=== PATIENT | male | born 1935 | race African-American/Black ===

== ENCOUNTER 2020-08-15 21:15 | Emergency (ER) | payer OTHER ==
[2020-08-15 21:43] VITALS: TEMP 97.6; BMI 27.4
[2020-08-15 22:09] LABS: BASO % 0.4 % (0-2.0); EOS % 0.2 % (0-4.5); HEMATOCRIT 35.5 % (35.4-49); HEMOGLOBIN 12.3 GM/dL (11.7-16.9); LYMPH % 11.6 % (8-40); MCH 30.7 pg (25.7-33.7); MCHC 34.7 g/dl (32.0-35.9); MEAN CELL VOLUME 88.5 fl (80-96); MEAN PLT VOLUME 8.9 fl (7.5-11.1); MONO % 4.5 % (3.8-10.2); NEUT % 83.3 % (42.8-82.8); PLATELET COUNT 157 K/MM3 (134-434); RBC 4.01 M/mm3 (4.00-5.60); RDW 16.2 % (11.9-15.9); WHITE BLOOD COUNT 7.7 K/mm3 (4.0-10.0)
[2020-08-15 22:19] LABS: CHLORIDE 102 mmol/L (98-107); SODIUM 138 mmol/L (136-145)
[2020-08-15 22:22] LABS: ALBUMIN 4.1 g/dl (3.4-5.0); ANION GAP 11 MMOL/L (8-16); CO2 26 mmol/L (21-32); GLUCOSE,RANDOM 61 mg/dL (74-106)
[2020-08-15 22:25] LABS: CREATININE 2.4 mg/dL (0.55-1.3); SGOT/AST 30 U/L (15-37); SGPT/ALT 23 U/L (13-61)
[2020-08-15 22:27] LABS: BILIRUBIN,TOTAL 0.5 mg/dL (0.2-1); TOT PROT 7.6 g/dl (6.4-8.2)
[2020-08-15 22:28] LABS: ALK PHOS 84 U/L (45-117)
[2020-08-15 22:32] LABS: BLOOD UREA NITROGEN 27.8 mg/dL (7-18)
[2020-08-15 23:56] VITALS: BP 120/63; PULSE 64
== END 2020-08-15 23:56 | disposition home or self-care (01) ==
LOC: JER 21:15
DX: E16.2 Hypoglycemia, unspecified (principal)
CPT/HCPCS: 36415; 70450-TC; 80053; 82550; 82553; 82962; 84484; 85025; 93005; 93010; 99285-25

== ENCOUNTER 2020-09-06 10:02 | Emergency (ER) | payer OTHER ==
[2020-09-06 10:12] VITALS: BP 159/95; PULSE 63; TEMP 97.8; BMI 61.4
[2020-09-06] MEDS ORDERED: LIDOCAINE 1%/EPI 1:100000 (50 ML MULTI DOSE VIAL) INF ONE (11:36)
[2020-09-06] MEDS ORDERED: LIDOCAINE 1%/EPI 1:100000 (20 ML MULTI DOSE VIAL) ONE (11:54)
== END 2020-09-06 13:00 | disposition home or self-care (01) ==
LOC: JER 10:02
PROC: 0H96XZZ Drainage of Back Skin, External Approach (ICD-10-PCS; principal; 2020-09-06)
DX: L02.212 Cutaneous abscess of back [any part, except buttock and flank] (principal)
CPT/HCPCS: 99284-25

== ENCOUNTER 2021-02-26 19:33 | Inpatient (IN) | payer OTHER ==
[2021-02-26 20:01] VITALS: BMI 25.9
[2021-02-26] MEDS ORDERED: LACTATED RINGERS SOLUTION 1000 ML INFUS.BAG IV ONE (20:28)
[2021-02-26] MEDS ORDERED: DEXTROSE 50%-WATER 25 GM/50 ML DISP.SYRIN ONE (20:34)
[2021-02-26 21:33] LABS: BASO % 0.4 % (0-2.0); EOS % 0.1 % (0-4.5); HEMATOCRIT 32.8 % (35.4-49); HEMOGLOBIN 11.2 GM/dL (11.7-16.9); LYMPH % 18.6 % (8-40); MEAN CELL VOLUME 88.1 fl (80-96); MONO % 15.1 % (3.8-10.2); NEUT % 65.8 % (42.8-82.8); PLATELET COUNT 172 10^3/uL (134-434); RBC 3.72 M/mm3 (4.00-5.60); RDW 15.4 % (11.9-15.9); WHITE BLOOD COUNT 6.4 K/mm3 (4.0-10.0)
[2021-02-26] MEDS ORDERED: CEFTRIAXONE 1 GM in DEXTROSE 5%-WATER - 100 ML IVPB ONE (21:35)
[2021-02-26] MEDS ORDERED: AZITHROMYCIN IVPB 500 MG in DEXTROSE 5%-WATER - 250 ML IVPB ONE (21:35)
[2021-02-26 21:41] LABS: EPI CELLS 2 /uL (0-25.1); HYALINE CASTS 0 /uL (0-3.1); URINE APPEARANCE CLEAR; URINE BACTERIA 2 /uL (0-1359); URINE BILIRUBIN NEGATIVE (NEGATIVE); URINE COLOR YELLOW; URINE GLUCOSE (UA) NEGATIVE (NEGATIVE); URINE KETONE NEGATIVE (NEGATIVE); URINE LEUK ESTERASE 1+ (NEGATIVE); URINE NITRITE NEGATIVE (NEGATIVE); URINE PROTEIN TRACE (NEGATIVE); URINE RBC 287 /uL (0-23.9); URINE UROBILINOGEN 0.2 mg/dL (0.2-1.0); URINE WBC 31 /uL (0-25.8)
[2021-02-26] MEDS ORDERED: CEFTRIAXONE 1 GM/50 ML BAG ONE (21:46)
[2021-02-26] MEDS ORDERED: AZITHROMYCIN IVPB 500 MG/250 ML BAG IVPB ONE (21:47)
[2021-02-26 21:54] LABS: CALCIUM 8.6 mg/dL (8.5-10.1)
[2021-02-26 21:55] LABS: ALBUMIN 3.5 g/dl (3.4-5.0); BLOOD UREA NITROGEN 29.2 mg/dL (7-18)
[2021-02-26 21:58] LABS: CREATININE 2.9 mg/dL (0.55-1.3)
[2021-02-26 21:59] LABS: TOT PROT 7.4 g/dl (6.4-8.2)
[2021-02-26 22:00] LABS: BILIRUBIN,TOTAL 0.3 mg/dL (0.2-1)
[2021-02-27] MEDS ORDERED: DEXAMETHASONE SOD PHOSPHATE 10 MG/1 ML VIAL IVPUSH ONE (02:32)
[2021-02-27] MEDS ORDERED: DEXAMETHASONE SOD PHOSPHATE 10 MG/1 ML VIAL ONE (04:24)
[2021-02-27] MEDS ORDERED: ACETAMINOPHEN 1000 MG/100 ML VIAL IVPB PRN (06:32)
[2021-02-27] MEDS ORDERED: ACETAMINOPHEN INJECTION 100 ML IVPB ONE (09:08)
[2021-02-27] MEDS ORDERED: CEFTRIAXONE 1 GM/50 ML BAG ONE (15:00)
[2021-02-27] MEDS: CEFTRIAXONE 1 GM in DEXTROSE 5%-WATER - 50 ML IVPB SCH (15:24)
[2021-02-27] MEDS ORDERED: SODIUM CHLORIDE 1,000 ML IV SCH (17:00)
[2021-02-27] MEDS ORDERED: HEPARIN NA (PORCINE) 5,000 UNITS/ML 1ML VIAL ONE (23:56)
[2021-02-28] MEDS: HEPARIN NA (PORCINE) 5,000 UNITS/ML 1ML VIAL SQ SCH ×2 (00:03→10:50)
[2021-02-28] MEDS: INSULIN SLIDING SCALE (NOVOLOG) 1 VIAL SQ SCH ×2 (02:09→07:55)
[2021-02-28 02:48] VITALS: TEMP 97.8
[2021-02-28] MEDS ORDERED: CEFTRIAXONE 1 GM/50 ML BAG ONE (10:48)
[2021-02-28] MEDS ORDERED: HEPARIN NA (PORCINE) 5,000 UNITS/ML 1ML VIAL ONE (10:48)
[2021-02-28] MEDS: CEFTRIAXONE 1 GM in DEXTROSE 5%-WATER - 50 ML IVPB SCH (10:50)
[2021-02-28 12:25] LABS: BASO % 0.4 % (0-2.0); HEMATOCRIT 31.9 % (35.4-49); HEMOGLOBIN 10.7 GM/dL (11.7-16.9); LYMPH % 14.7 % (8-40); MCH 29.6 pg (25.7-33.7); MCHC 33.6 g/dl (32.0-35.9); MEAN CELL VOLUME 88.1 fl (80-96); MEAN PLT VOLUME 8.4 fl (7.5-11.1); MONO % 8.2 % (3.8-10.2); NEUT % 76.7 % (42.8-82.8); PLATELET COUNT 178 10^3/uL (134-434); RBC 3.62 M/mm3 (4.00-5.60); RDW 15.7 % (11.9-15.9); WHITE BLOOD COUNT 6.8 K/mm3 (4.0-10.0)
[2021-02-28 13:03] LABS: BLOOD UREA NITROGEN 36.5 mg/dL (7-18); CALCIUM 8.3 mg/dL (8.5-10.1)
[2021-02-28 13:04] LABS: MAGNESIUM 2.4 mg/dL (1.8-2.4)
[2021-02-28 13:06] LABS: CREATININE 2.4 mg/dL (0.55-1.3)
[2021-02-28 13:08] LABS: BILIRUBIN,TOTAL 0.2 mg/dL (0.2-1); TOT PROT 6.3 g/dl (6.4-8.2)
[2021-02-28 13:09] LABS: ALBUMIN 2.8 g/dl (3.4-5.0)
[2021-02-28 18:20] VITALS: BP 122/69; PULSE 75
[2021-03-01] MEDS ORDERED: metoPROLOL SUCCINATE 25 MG TAB.SR.24H (FP) PO SCH (10:00)
== END 2021-02-28 18:20 | disposition home or self-care (01) | DRG 637 ==
LOC: JER 19:33 → JERBED 23:04
PROVIDERS: ADMIT Hospitalist; ATTEND Nurse Practitioner Family
DX: E11.649 Type 2 diabetes mellitus with hypoglycemia without coma (principal); J12.82 Pneumonia due to coronavirus disease 2019; U07.1 COVID-19; G93.41 Metabolic encephalopathy; N39.0 Urinary tract infection, site not specified; I13.0 Hypertensive heart and chronic kidney disease with heart failure and stage 1 through stage 4 chronic kidney disease, or unspecified chronic kidney disease; E78.5 Hyperlipidemia, unspecified; N40.0 Benign prostatic hyperplasia without lower urinary tract symptoms; M10.9 Gout, unspecified; R09.02 Hypoxemia; E86.0 Dehydration; N17.9 Acute kidney failure, unspecified; G30.9 Alzheimer's disease, unspecified; F02.80 Dementia in other diseases classified elsewhere, unspecified severity, without behavioral disturbance, psychotic disturbance, mood disturbance, and anxiety; E11.22 Type 2 diabetes mellitus with diabetic chronic kidney disease; N18.30 Chronic kidney disease, stage 3 unspecified; I50.9 Heart failure, unspecified
CPT/HCPCS: 36415; 71045-TC-FY; 74176-TC; 80053; 81003; 82550; 82553; 82962; 83735; 84484; 85025; 85379; 86140; 87040; 87086; 87804; 93005; 93010; 99285-25; C9803; J0131; J1100; J1644; U0003; U0005

== ENCOUNTER 2021-03-01 06:34 | Observation (INO) | payer OTHER ==
[2021-03-01 06:41] VITALS: BMI 26.3
[2021-03-01] MEDS ORDERED: CEFTRIAXONE 1 GM in DEXTROSE 5%-WATER - 100 ML IVPB ONE (08:05)
[2021-03-01] MEDS ORDERED: SODIUM CHLORIDE 0.9% 500 ML INFUS.BAG IV ONE (08:11)
[2021-03-01] MEDS ORDERED: CEFTRIAXONE 1 GM/50 ML BAG ONE (10:04)
[2021-03-01 10:10] LABS: BASO % 0.1 % (0-2.0); HEMATOCRIT 34.6 % (35.4-49); HEMOGLOBIN 11.5 GM/dL (11.7-16.9); LYMPH % 16.6 % (8-40); MCH 29.3 pg (25.7-33.7); MCHC 33.3 g/dl (32.0-35.9); MEAN PLT VOLUME 8.4 fl (7.5-11.1); MONO % 12.4 % (3.8-10.2); NEUT % 70.9 % (42.8-82.8); PLATELET COUNT 171 10^3/uL (134-434); RBC 3.93 M/mm3 (4.00-5.60); RDW 15.2 % (11.9-15.9); WHITE BLOOD COUNT 6.3 K/mm3 (4.0-10.0)
[2021-03-01 10:34] LABS: CALCIUM 9.2 mg/dL (8.5-10.1)
[2021-03-01 10:35] LABS: BLOOD UREA NITROGEN 39.1 mg/dL (7-18)
[2021-03-01 10:38] LABS: CREATININE 2.9 mg/dL (0.55-1.3)
[2021-03-01 10:40] LABS: BILIRUBIN,TOTAL 0.3 mg/dL (0.2-1); TOT PROT 7.1 g/dl (6.4-8.2)
[2021-03-01 11:54] LABS: EPI CELLS 3 /uL (0-25.1); HYALINE CASTS 0 /uL (0-3.1); PH,URINE 6.5 (5.0-8.0); URINE APPEARANCE CLEAR; URINE BACTERIA 0 /uL (0-1359); URINE BILIRUBIN NEGATIVE (NEGATIVE); URINE COLOR YELLOW; URINE GLUCOSE (UA) NEGATIVE (NEGATIVE); URINE KETONE NEGATIVE (NEGATIVE); URINE LEUK ESTERASE TRACE (NEGATIVE); URINE NITRITE NEGATIVE (NEGATIVE); URINE PROTEIN 2+ (NEGATIVE); URINE RBC 1209 /uL (0-23.9); URINE UROBILINOGEN 0.2 mg/dL (0.2-1.0); URINE WBC 20 /uL (0-25.8)
[2021-03-01] MEDS ORDERED: ASPIRIN 81 MG CHEWABLE TABLETS PO ONE (12:14)
[2021-03-01] MEDS ORDERED: ASPIRIN 81 MG CHEWABLE TABLETS ONE (14:25)
[2021-03-01 15:15] LABS: MAGNESIUM 2.3 mg/dL (1.8-2.4)
[2021-03-01 15:19] LABS: PHOSPHOROUS 3.5 mg/dL (2.5-4.9)
[2021-03-01] MEDS ORDERED: PNEUMOC 13-VAL CONJ-DIP CRM/PF 0.5 ML DISP.SYRIN IM ONE (17:43)
[2021-03-01] MEDS: INSULIN SLIDING SCALE (NOVOLOG) 1 VIAL SQ SCH ×2 (19:24→22:36)
[2021-03-01] MEDS ORDERED: HEPARIN NA (PORCINE) 5,000 UNITS/ML 1ML VIAL ONE (21:28)
[2021-03-01] MEDS: HEPARIN NA (PORCINE) 5,000 UNITS/ML 1ML VIAL SQ SCH (22:00)
[2021-03-02] MEDS ORDERED: ACETAMINOPHEN 1000 MG/100 ML BAG IVPB ONE (04:33)
[2021-03-02] MEDS ORDERED: HEPARIN NA (PORCINE) 5,000 UNITS/ML 1ML VIAL ONE ×3 (06:38→22:25)
[2021-03-02] MEDS: HEPARIN NA (PORCINE) 5,000 UNITS/ML 1ML VIAL SQ SCH ×3 (06:54→22:44)
[2021-03-02] MEDS: INSULIN SLIDING SCALE (NOVOLOG) 1 VIAL SQ SCH ×4 (07:22→22:44)
[2021-03-02 07:27] LABS: BLOOD UREA NITROGEN 32.2 mg/dL (7-18); CALCIUM 8.8 mg/dL (8.5-10.1)
[2021-03-02 07:31] LABS: CREATININE 2.2 mg/dL (0.55-1.3)
[2021-03-02] MEDS ORDERED: PT OWN MED DRAWER 7, Y5N ONE (09:02)
[2021-03-02 09:15] LABS: HEMATOCRIT 32.7 % (35.4-49); MCH 29.6 pg (25.7-33.7); MCHC 33.7 g/dl (32.0-35.9); MEAN CELL VOLUME 87.9 fl (80-96); PLATELET COUNT 154 10^3/uL (134-434); RBC 3.72 M/mm3 (4.00-5.60); RDW 15.3 % (11.9-15.9); WHITE BLOOD COUNT 5.2 K/mm3 (4.0-10.0)
[2021-03-02 11:21] LABS: ANISOCYTOSIS 1+; MACROCYTOSIS 0; OVALOCYTE 1+; PLATELET ESTIMATE DECREASED
[2021-03-02] MEDS: CEFUROXIME AXETIL 500 MG TABLET PO SCH ×2 (12:42→22:44)
[2021-03-02] MEDS ORDERED: metoPROLOL SUCCINATE 25 MG TAB.SR.24H (FP) ONE (16:12)
[2021-03-02] MEDS: amLODIPine BESYLATE 5 MG TABLET (FP) PO SCH (16:20)
[2021-03-02] MEDS: metoPROLOL SUCCINATE 25 MG TAB.SR.24H (FP) PO SCH (16:20)
[2021-03-02] MEDS ORDERED: ATORVASTATIN CA 10 MG TABLET (FP) ONE (23:04)
[2021-03-02] MEDS: ATORVASTATIN CA 10 MG TABLET (FP) PO SCH (23:06)
[2021-03-03] MEDS: HEPARIN NA (PORCINE) 5,000 UNITS/ML 1ML VIAL SQ SCH ×3 (05:57→22:57)
[2021-03-03] MEDS: INSULIN SLIDING SCALE (NOVOLOG) 1 VIAL SQ SCH ×4 (06:16→22:57)
[2021-03-03] MEDS: ZINC SULFATE 220 MG CAPSULE (FP) PO SCH (09:15)
[2021-03-03] MEDS: metoPROLOL SUCCINATE 25 MG TAB.SR.24H (FP) PO SCH (09:15)
[2021-03-03] MEDS: amLODIPine BESYLATE 5 MG TABLET (FP) PO SCH (09:15)
[2021-03-03] MEDS: ASCORBIC ACID 500 MG TABLET (FP) PO SCH (09:15)
[2021-03-03] MEDS: CEFUROXIME AXETIL 500 MG TABLET PO SCH ×2 (09:15→22:57)
[2021-03-03] MEDS ORDERED: ACETAMINOPHEN 325 MG TABLET (FP) PO PRN (20:40)
[2021-03-03] MEDS ORDERED: ACETAMINOPHEN 1000 MG/100 ML BAG IVPB ONE (22:00)
[2021-03-03] MEDS: ATORVASTATIN CA 10 MG TABLET (FP) PO SCH (22:57)
[2021-03-04] MEDS: HEPARIN NA (PORCINE) 5,000 UNITS/ML 1ML VIAL SQ SCH ×3 (05:50→21:27)
[2021-03-04] MEDS: INSULIN SLIDING SCALE (NOVOLOG) 1 VIAL SQ SCH ×4 (06:15→21:38)
[2021-03-04] MEDS: ZINC SULFATE 220 MG CAPSULE (FP) PO SCH (09:51)
[2021-03-04] MEDS: metoPROLOL SUCCINATE 25 MG TAB.SR.24H (FP) PO SCH (09:51)
[2021-03-04] MEDS: ASCORBIC ACID 500 MG TABLET (FP) PO SCH (09:52)
[2021-03-04] MEDS: amLODIPine BESYLATE 5 MG TABLET (FP) PO SCH (09:52)
[2021-03-04] MEDS ORDERED: PT OWN MED DRAWER 7, Y5N ONE (14:28)
[2021-03-04] MEDS: CEFUROXIME AXETIL 500 MG TABLET PO SCH ×2 (14:29→21:27)
[2021-03-04 20:18] VITALS: BP 119/71; PULSE 80; TEMP 99.6
[2021-03-04] MEDS: ATORVASTATIN CA 10 MG TABLET (FP) PO SCH (21:26)
== END 2021-03-04 22:20 ==
LOC: JER 06:34 → JERBED 09:16 → UNDOADMOB 09:16 → INTOOBSV 09:16 → JERBED 13:56 → J4W 03-03 00:24
PROVIDERS: ADMIT Internal Medicine; ATTEND Nurse Practitioner Acute Care
PROC: 3E03329 Introduction of Other Anti-infective into Peripheral Vein, Percutaneous Approach (ICD-10-PCS; principal; 2021-03-01)
PROC: 3E023GC Introduction of Other Therapeutic Substance into Muscle, Percutaneous Approach (ICD-10-PCS; 2021-03-01)
PROC: 3E013VG Introduction of Insulin into Subcutaneous Tissue, Percutaneous Approach (ICD-10-PCS; 2021-03-01)
PROC: 3E0337Z Introduction of Electrolytic and Water Balance Substance into Peripheral Vein, Percutaneous Approach (ICD-10-PCS; 2021-03-01)
DX: U07.1 COVID-19 (principal); E11.22 Type 2 diabetes mellitus with diabetic chronic kidney disease; I13.0 Hypertensive heart and chronic kidney disease with heart failure and stage 1 through stage 4 chronic kidney disease, or unspecified chronic kidney disease; N39.0 Urinary tract infection, site not specified; I24.8 Other forms of acute ischemic heart disease; E78.00 Pure hypercholesterolemia, unspecified; F03.90 Unspecified dementia, unspecified severity, without behavioral disturbance, psychotic disturbance, mood disturbance, and anxiety; Z87.440 Personal history of urinary (tract) infections; J18.9 Pneumonia, unspecified organism; E88.89 Other specified metabolic disorders; R79.89 Other specified abnormal findings of blood chemistry
CPT/HCPCS: 36415; 70450-TC; 71045-TC-FY; 72125-TC; 80048; 80053; 81003; 82962; 83735; 84100; 84484; 85025; 87086; 93005; 93010; 96365; 96372; 96375; 96376; 97116-GP; 97162-GP; 99285-25; C9803; G0378; J0131; J1644; U0003; U0005

== ENCOUNTER 2024-05-04 06:24 | Inpatient (IN) | payer OTHER ==
[2024-05-04] MEDS: SODIUM CHLORIDE 0.9% 1000 ML INFUS.BAG IV ONE (08:34)
[2024-05-04] MEDS: SODIUM CHLORIDE 0.9% 500 ML INFUS.BAG IV ONE (08:34)
[2024-05-04] MEDS ORDERED: ACETAMINOPHEN INJECTION 100 ML ONE (08:56)
[2024-05-04 08:58] LABS: BASO % 0.4 % (0-2.0); EOS % 0.4 % (0-4.5); HEMATOCRIT 40.5 % (35.4-49); HEMOGLOBIN 13.5 GM/dL (11.7-16.9); LYMPH % 13.5 % (8-40); MCH 30.5 pg (25.7-33.7); MCHC 33.4 g/dl (32.0-35.9); MEAN CELL VOLUME 91.2 fl (80-96); MEAN PLT VOLUME 7.9 fl (7.5-11.1); MONO % 16.7 % (3.8-10.2); PLATELET COUNT 133 10^3/uL (134-434); RBC 4.44 M/mm3 (4.00-5.60); RDW 15.2 % (11.9-15.9); WHITE BLOOD COUNT 5.1 K/mm3 (4.0-10.0)
[2024-05-04] MEDS: ACETAMINOPHEN 1000 MG/100 ML BAG IVPB ONE (08:59)
[2024-05-04 09:26] LABS: EPI CELLS 1 /uL (0-25.1); HYALINE CASTS 0 /uL (0-3.1); URINE APPEARANCE CLEAR; URINE BACTERIA 0 /uL (0-1359); URINE BILIRUBIN NEGATIVE (NEGATIVE); URINE COLOR YELLOW; URINE GLUCOSE (UA) 2+ (NEGATIVE); URINE KETONE NEGATIVE (NEGATIVE); URINE LEUK ESTERASE NEGATIVE (NEGATIVE); URINE NITRITE NEGATIVE (NEGATIVE); URINE PROTEIN 1+ (NEGATIVE); URINE RBC 8 /uL (0-23.9); URINE UROBILINOGEN 0.2 mg/dL (0.2-1.0); URINE WBC 1 /uL (0-25.8)
[2024-05-04 09:43] LABS: POTASSIUM 4.2 mmol/L (3.5-5.1)
[2024-05-04 09:45] LABS: CALCIUM 9.1 mg/dL (8.5-10.1)
[2024-05-04 09:46] LABS: BLOOD UREA NITROGEN 40.5 mg/dL (7-18); MAGNESIUM 2.6 mg/dL (1.8-2.4)
[2024-05-04 09:49] LABS: CREATININE 3.7 mg/dL (0.55-1.3)
[2024-05-04 09:50] LABS: BILIRUBIN,TOTAL 0.4 mg/dL (0.2-1); TOT PROT 7.7 g/dl (6.4-8.2)
[2024-05-04 13:24] LABS: HIV INTERPRETATION NEGATIVE (NEGATIVE)
[2024-05-04] MEDS: INSULIN ASPART SLIDING SCALE (NOVOLOG) 1 VIAL SQ SCH (17:21)
[2024-05-04] MEDS: ATORVASTATIN CA 10 MG TABLET (FP) PO SCH (21:58)
[2024-05-04] MEDS: PRAMIPEXOLE DIHYDROCHLORIDE 0.5 MG TABLET PO SCH (21:58)
[2024-05-04] MEDS: DONEPEZIL HCL 5 MG TABLET (FP) PO SCH (21:58)
[2024-05-04] MEDS: HEPARIN NA (PORCINE) 5,000 UNITS/ML 1ML VIAL SQ SCH (21:58)
[2024-05-05] MEDS: ACETAMINOPHEN 325 MG TABLET (FP) PO PRN (03:47)
[2024-05-05 08:09] LABS: HEMATOCRIT 37.8 % (35.4-49); MCH 30.9 pg (25.7-33.7); MCHC 34.4 g/dl (32.0-35.9); MEAN CELL VOLUME 89.8 fl (80-96); MEAN PLT VOLUME 8.1 fl (7.5-11.1); PLATELET COUNT 129 10^3/uL (134-434); RBC 4.21 M/mm3 (4.00-5.60); RDW 15.5 % (11.9-15.9); WHITE BLOOD COUNT 4.9 K/mm3 (4.0-10.0)
[2024-05-05 08:27] LABS: POTASSIUM 3.9 mmol/L (3.5-5.1)
[2024-05-05 08:31] LABS: CALCIUM 8.5 mg/dL (8.5-10.1)
[2024-05-05 08:33] LABS: ALBUMIN 3.5 g/dl (3.4-5.0); BLOOD UREA NITROGEN 39.9 mg/dL (7-18); MAGNESIUM 2.3 mg/dL (1.8-2.4)
[2024-05-05 08:36] LABS: CREATININE 3.2 mg/dL (0.55-1.3); PHOSPHOROUS 3.2 mg/dL (2.5-4.9)
[2024-05-05 08:37] LABS: BILIRUBIN,TOTAL 0.4 mg/dL (0.2-1); TOT PROT 6.9 g/dl (6.4-8.2)
[2024-05-05] MEDS: amLODIPine BESYLATE 5 MG TABLET (FP) PO SCH (11:14)
[2024-05-05] MEDS: LOSARTAN POTASSIUM 50 MG TABLET PO SCH (11:14)
[2024-05-05] MEDS: metoPROLOL SUCCINATE 25 MG TAB.SR.24H (FP) PO SCH (11:14)
[2024-05-06 07:28] LABS: HEMATOCRIT 41.7 % (35.4-49); HEMOGLOBIN 13.9 GM/dL (11.7-16.9); MCH 30.6 pg (25.7-33.7); MCHC 33.4 g/dl (32.0-35.9); MEAN CELL VOLUME 91.6 fl (80-96); MEAN PLT VOLUME 8.1 fl (7.5-11.1); PLATELET COUNT 139 10^3/uL (134-434); RBC 4.55 M/mm3 (4.00-5.60); RDW 15.4 % (11.9-15.9); WHITE BLOOD COUNT 5.1 K/mm3 (4.0-10.0)
[2024-05-06 07:49] LABS: POTASSIUM 3.9 mmol/L (3.5-5.1)
[2024-05-06 07:56] LABS: CALCIUM 9.4 mg/dL (8.5-10.1)
[2024-05-06 07:57] LABS: ALBUMIN 3.7 g/dl (3.4-5.0)
[2024-05-06 08:01] LABS: BILIRUBIN,TOTAL 0.5 mg/dL (0.2-1); CREATININE 3.2 mg/dL (0.55-1.3); TOT PROT 7.6 g/dl (6.4-8.2)
[2024-05-06 15:56] VITALS: BMI 24.1
[2024-05-07 15:08] VITALS: BP 133/81; PULSE 100; RESP 20; TEMP 98.2
== END 2024-05-07 15:03 | DRG 309 ==
LOC: JER 06:24 → JERBED 09:34 → J4W 14:33
PROVIDERS: ADMIT Family Medicine; ATTEND Family Medicine
DX: I47.10 Supraventricular tachycardia, unspecified (principal); I13.0 Hypertensive heart and chronic kidney disease with heart failure and stage 1 through stage 4 chronic kidney disease, or unspecified chronic kidney disease; I50.32 Chronic diastolic (congestive) heart failure; G20.A1 Parkinson's disease without dyskinesia, without mention of fluctuations; F03.90 Unspecified dementia, unspecified severity, without behavioral disturbance, psychotic disturbance, mood disturbance, and anxiety; I48.91 Unspecified atrial fibrillation; E78.5 Hyperlipidemia, unspecified; N40.0 Benign prostatic hyperplasia without lower urinary tract symptoms; N18.9 Chronic kidney disease, unspecified; E11.22 Type 2 diabetes mellitus with diabetic chronic kidney disease; R26.81 Unsteadiness on feet
CPT/HCPCS: 0241U-QW; 36415; 71045-TC-FY; 80053; 81003; 82962; 83735; 83880; 84100; 84484; 85025; 85027; 86803; 87040; 87086; 87389; 93005; 93010; 93306-TC; 97116-GP; 97162-GP; 99285-25; J0131; J1644

== ENCOUNTER 2024-05-07 16:42 | Observation (INO) | payer OTHER ==
[2024-05-07 18:09] LABS: POTASSIUM 4.4 mmol/L (3.5-5.1)
[2024-05-07 18:11] LABS: ALBUMIN 3.8 g/dl (3.4-5.0); CALCIUM 9.3 mg/dL (8.5-10.1)
[2024-05-07 18:12] LABS: BLOOD UREA NITROGEN 38.9 mg/dL (7-18)
[2024-05-07 18:15] LABS: BASO % 0.4 % (0-2.0); CREATININE 3.3 mg/dL (0.55-1.3); HEMATOCRIT 44.4 % (35.4-49); HEMOGLOBIN 14.8 GM/dL (11.7-16.9); LYMPH % 36.6 % (8-40); MCH 30.5 pg (25.7-33.7); MCHC 33.3 g/dl (32.0-35.9); MEAN CELL VOLUME 91.7 fl (80-96); MEAN PLT VOLUME 7.9 fl (7.5-11.1); MONO % 11.6 % (3.8-10.2); NEUT % 50.4 % (42.8-82.8); PLATELET COUNT 152 10^3/uL (134-434); RBC 4.84 M/mm3 (4.00-5.60); WHITE BLOOD COUNT 5.9 K/mm3 (4.0-10.0)
[2024-05-07 18:16] LABS: BILIRUBIN,TOTAL 0.5 mg/dL (0.2-1); TOT PROT 7.8 g/dl (6.4-8.2)
[2024-05-07 19:27] LABS: EPI CELLS 2 /uL (0-25.1); HYALINE CASTS 0 /uL (0-3.1); PH,URINE 6.5 (5.0-8.0); URINE APPEARANCE CLEAR; URINE BACTERIA 23 /uL (0-1359); URINE BILIRUBIN NEGATIVE (NEGATIVE); URINE COLOR YELLOW; URINE GLUCOSE (UA) NEGATIVE (NEGATIVE); URINE KETONE NEGATIVE (NEGATIVE); URINE LEUK ESTERASE NEGATIVE (NEGATIVE); URINE NITRITE NEGATIVE (NEGATIVE); URINE PROTEIN 2+ (NEGATIVE); URINE RBC 15 /uL (0-23.9); URINE UROBILINOGEN 0.2 mg/dL (0.2-1.0); URINE WBC 1 /uL (0-25.8)
[2024-05-07] MEDS ORDERED: ACETAMINOPHEN 325 MG TABLET (FP) PO PRN (20:44)
[2024-05-07] MEDS ORDERED: DOCUSATE SODIUM 100 MG CAPSULE (FP) PO PRN (20:44)
[2024-05-07] MEDS ORDERED: ATORVASTATIN CA 10 MG TABLET (FP) ONE (22:01)
[2024-05-07] MEDS ORDERED: HEPARIN NA (PORCINE) 5,000 UNITS/ML 1ML VIAL ONE (22:02)
[2024-05-07] MEDS: INSULIN ASPART SLIDING SCALE (NOVOLOG) 1 VIAL SQ SCH (22:07)
[2024-05-07] MEDS: ATORVASTATIN CA 10 MG TABLET (FP) PO SCH (22:07)
[2024-05-07] MEDS: HEPARIN NA (PORCINE) 5,000 UNITS/ML 1ML VIAL SQ SCH (22:07)
[2024-05-07 22:35] VITALS: BMI 23.1
[2024-05-07] MEDS: PRAMIPEXOLE DIHYDROCHLORIDE 0.5 MG TABLET PO SCH (22:55)
[2024-05-07] MEDS: MEMANTINE HCL 10 MG TABLET (FP) PO SCH (22:56)
[2024-05-08 08:31] LABS: POTASSIUM 3.9 mmol/L (3.5-5.1)
[2024-05-08 08:33] LABS: CALCIUM 9.3 mg/dL (8.5-10.1)
[2024-05-08 08:34] LABS: BLOOD UREA NITROGEN 37.9 mg/dL (7-18)
[2024-05-08 08:38] LABS: CREATININE 3.1 mg/dL (0.55-1.3)
[2024-05-08] MEDS: amLODIPine BESYLATE 5 MG TABLET (FP) PO SCH (09:14)
[2024-05-08] MEDS: DONEPEZIL HCL 10 MG TABLET (FP) PO SCH (09:14)
[2024-05-08] MEDS: LOSARTAN POTASSIUM 50 MG TABLET PO SCH (09:14)
[2024-05-08] MEDS: METOPROLOL TARTRATE 25 MG TABLET (FP) PO SCH (11:27)
[2024-05-08] MEDS: QUEtiapine FUMARATE 25 MG TABLET PO SCH (21:53)
[2024-05-09] MEDS: DONEPEZIL HCL 5 MG TABLET (FP) PO SCH (09:55)
[2024-05-10 10:16] VITALS: RESP 18
[2024-05-10 15:12] VITALS: BP 121/64; PULSE 70; TEMP 97.8
== END 2024-05-10 16:38 ==
LOC: JER 16:42 → JERBED 19:08 → J4W 21:08
PROVIDERS: ADMIT Internal Medicine; ATTEND Family Medicine
PROC: 3E023GC Introduction of Other Therapeutic Substance into Muscle, Percutaneous Approach (ICD-10-PCS; principal; 2024-05-07)
DX: R00.1 Bradycardia, unspecified (principal); I48.91 Unspecified atrial fibrillation; I11.9 Hypertensive heart disease without heart failure; G20.A1 Parkinson's disease without dyskinesia, without mention of fluctuations; F02.80 Dementia in other diseases classified elsewhere, unspecified severity, without behavioral disturbance, psychotic disturbance, mood disturbance, and anxiety; E78.5 Hyperlipidemia, unspecified; I47.10 Supraventricular tachycardia, unspecified; E11.9 Type 2 diabetes mellitus without complications; N40.0 Benign prostatic hyperplasia without lower urinary tract symptoms; N18.9 Chronic kidney disease, unspecified
CPT/HCPCS: 0241U-QW; 36415; 71046-TC-FY; 80048; 80053; 81003; 82962; 84484; 85025; 87086; 93005; 93010; 96372; 99285-25; G0378; J1644